=== PATIENT | male | born 1950 | race Caucasian/White ===

== ENCOUNTER → 2016-06-08 | Outpatient (CLI) | payer OTHER, MEDICARE | LOC: FIMAGING 10:49 | PROVIDERS: ATTEND Physician Assistant Surgical | DX: M50.31 Other cervical disc degeneration, high cervical region (principal); Z98.1 Arthrodesis status ==

== ENCOUNTER 2016-12-15 07:10 | Emergency (ER) | payer OTHER, MEDICARE ==
[2016-12-15] MEDS ORDERED: NS 1,000 ML IV ONE (07:38)
[2016-12-15] MEDS ORDERED: HYOSCYAMINE SULFATE 0.125 MG TAB PO ONE (07:38)
[2016-12-15] MEDS ORDERED: MAG HYDROX/AL HYDROX/SIMETH 30 ML UDCUP PO ONE (07:38)
[2016-12-15] MEDS ORDERED: LIDOCAINE 2% VISCOUS 15 ML UDCUP PO ONE (07:38)
--- NOTE | 2016-12-15 07:40 | EDPHY ---
H & P Stated Complaint: Abdo pain for 10 hours. Denies N/V/D. Time Seen by Provider: 12/15/16 07:30 HPI/ROS: CHIEF COMPLAINT: Epigastric pain HISTORY OF PRESENT ILLNESS: Patient is a 65-year-old man who comes to the emergency department complaining of epigastric pain that began around 10 o' clock yesterday evening. He has never had these symptoms before. He describes it as burning sensation and a lot of belching. No history of abdominal surgery. He is not a drinker. No fever. No vomiting or diarrhea. Slight nausea. REVIEW OF SYSTEMS: Constitutional: denies: chills, fever, recent illness, recent injury EENTM: denies: blurred vision, double vision, nose congestion Respiratory: denies: cough, shortness of breath Cardiac: denies: chest pain, irregular heart rate, lightheadedness, palpitations Gastrointestinal/Abdominal: See HPI denies: diarrhea, nausea, vomiting, blood streaked stools Genitourinary: denies: dysuria, frequency, hematuria, pain Musculoskeletal: denies: joint pain, muscle pain Skin: denies: lesions, rash, jaundice, bruising Neurological: denies: headache, numbness, paresthesia, tingling, dizziness, weakness Hematologic/Lymphatic: denies: blood clots, easy bleeding, easy bruising Immunologic/allergic: denies: HIV/AIDS, transplant EXAM: GENERAL: Well-appearing, well-nourished and in no acute distress. HEAD: Atraumatic, normocephalic. EYES: Pupils equal round and reactive to light, extraocular movements intact, sclera anicteric, conjunctiva are normal. ENT: TMs normal, nares patent, oropharynx clear without exudates. Moist mucous membranes. NECK: Normal range of motion, supple without lymphadenopathy or JVD. LUNGS: Breath sounds clear to auscultation bilaterally and equal. No wheezes rales or rhonchi. HEART: Regular rate and rhythm without murmurs, rubs or gallops. ABDOMEN: Soft, nontender, normoactive bowel sounds. No guarding, no rebound. No masses appreciated. BACK: No CVA tenderness, no spinal tenderness, step-offs or deformities EXTREMITIES: Normal range of motion, no pitting or edema. No clubbing or cyanosis. NEUROLOGICAL: Cranial nerves II through XII grossly intact. Normal speech, normal gait. 5/5 strength, normal movement in all extremities, normal sensation PSYCH: Normal mood, normal affect. SKIN: Warm, dry, normal turgor, no visible rashes or lesions. Source: Patient Exam Limitations: No limitations - Personal History Current Tetanus Diphtheria and Acellular Pertussis (TDAP): Yes - Medical/Surgical History Hx Asthma: No Hx Chronic Respiratory Disease: No Hx Diabetes: Yes Hx Cardiac Disease: No Hx Renal Disease: No Hx Cirrhosis: No Hx Alcoholism: No Hx HIV/AIDS: No Hx Splenectomy or Spleen Trauma: No Other PMH: DM 2. - Social History Smoking Status: Never smoked Alcohol Use: Sober Drug Use: None Constitutional: Initial Vital Signs Temperature (C) 36.5 C 12/15/16 07:13 Heart Rate 76 12/15/16 07:13 Respiratory Rate 16 12/15/16 07:13 Blood Pressure 107/65 12/15/16 07:13 O2 Sat (%) 97 12/15/16 07:13 O2 Delivery Mode Room Air Allergies/Adverse Reactions: No Known Allergies Allergy (Verified 01/05/15 15:08) Home Medications: Medication Instructions Recorded Atorvastatin Calcium [Lipitor 10 10 mg PO DAILY 12/29/14 mg (*)] Bupropion HCl [Bupropion HCl Sr] 100 mg PO BID 12/29/14 Insulin Glargine [Lantus 100 12 unit SQ AD 12/29/14 UNITS/ML (*)] Lisinopril [Zestril 2.5 mg (*)] 2.5 mg PO DAILY 12/29/14 metFORMIN HCL [Metformin HCl ER] 1,000 mg PO BID 12/29/14 Famotidine [Pepcid] 40 mg PO HS #30 tablet 12/15/16 Medical Decision Making - Diagnostics EKG Interpretation: An EKG obtained and was read and documented in trace view. Please see trace view for full reading and report. Sinus rhythm, no acute ischemic changes ED Course/Re-evaluation: 9:00 a.m. we discussed the CT and lab results. The lab results are reassuring. The patient's abdominal exam is benign. I recommended admission for what appears to be a small-bowel obstruction but without transition and a CT scan. The patient declines this and states that he does not feel that bad. He does feel better after the GI cocktail. I will start him on an acid. He states that he does have the urge to belch. We discussed things that may happen if he was admitted and precautions that would be taken. He again declines and would prefer to go home. He states that he lives very close and will return if his symptoms worsen in the next 24 hours. He will not eat or drink today and we discussed slow advancement of diet tomorrow. 11:00 A.M. the patient has been here for several hours. His pain has resolved. He continues to refuse admission and is eager to go home. We discussed indications for returning. Differential Diagnosis: Partial list of the Differential diagnosis considered include but were not limited to; peptic ulcer disease, small bowel obstruction and although unlikely based on the history and physical exam, I also considered cancer, ischemia, volvulus. I discussed these differential diagnoses and the plan with the patient as well as the usual and expected course. The patient understands that the diagnosis is provisional and that in medicine we are not always correct and that further workup is often warranted. Usual and customary warnings were given. All of the patient's questions were answered. The patient was instructed to return to the emergency department should the symptoms at all worsen or return, otherwise to followup with the physician as we discussed. - Data Points Laboratory Results: Laboratory Results 12/15/16 07:35 12/15/16 07:35 Medications Given: Discontinued Medications Al Hydroxide/Mg Hydroxide (Maalox Susp) 30 ml PO ONCE ONE Stop: 12/15/16 07:39 Last Admin: 12/15/16 07:49 Dose: 30 ml Hyoscyamine Sulfate (Levsin, Hyomax-Sl) 0.25 mg PO ONCE ONE Stop: 12/15/16 07:39 Last Admin: 12/15/16 07:49 Dose: 0.25 mg Sodium Chloride (Ns) 1,000 mls @ 0 mls/hr IV EDNOW ONE; Wide Open PRN Reason: Protocol Stop: 12/15/16 07:39 Last Admin: 12/15/16 07:50 Dose: 1,000 mls Famotidine/Sodium Chloride (Pepcid 20 Mg (Premix)) 50 mls @ 200 mls/hr IV EDNOW ONE Stop: 12/15/16 09:10 Last Admin: 12/15/16 09:04 Dose: 50 mls Lidocaine (Lidocaine 2% Viscous) 15 ml PO ONCE ONE Stop: 12/15/16 07:39 Last Admin: 12/15/16 07:49 Dose: 15 ml Departure - Departure Disposition: Home, Routine, Self-Care Clinical Impression: Abdominal pain Qualifiers: Abdominal location: generalized Qualified Code(s): R10.84 - Generalized abdominal pain Condition: Fair Instructions: Abdominal Pain (ED) Referrals: Venessa Larios MD [Primary Care Provider] - As per Instructions Prescriptions: Famotidine [Pepcid] 40 mg PO HS #30 tablet
[2016-12-15 07:44] LABS: % IMMATURE GRANULYOCYTES 0.2 % (0.0-1.1); ABSOLUTE IMMATURE GRANULOCYTES 0.01 10^3/uL (0.00-0.10); ADD DIFF? NO; ADD MORPH? NO; ADD SCAN? NO; ATYPICAL LYMPHOCYTE FLAG 0 (0-99); FRAGMENT RBC FLAG 0 (0-99); HEMATOCRIT 44.2 % (40.0-51.0); HEMOGLOBIN 15.5 g/dL (13.7-17.5); LEFT SHIFT FLG 0 (0-99); LIPEMIA HEMOLYSIS FLAG 90 (0-99); MEAN CELL HEMOGLOBIN 30.9 pg (27.9-34.1); MEAN CELL HEMOGLOBIN CONCENTR. 35.1 g/dL (32.4-36.7); MEAN PLATELET VOLUME 9.4 fL (8.7-11.7); PLATELET CLUMPS FLAG 0 (0-99); PLATELET COUNT 213 10^3/uL (150-400); RED BLOOD CELL COUNT 5.02 10^6/uL (4.40-6.38)
[2016-12-15 07:52] LABS: INR 0.99 (0.83-1.16)
[2016-12-15 07:53] LABS: APTT 28.2 SEC (23.0-38.0)
[2016-12-15 07:56] LABS: ALANINE AMINOTRANSFERASE 59 IU/L (21-72); ALBUMIN 4.6 g/dL (3.5-5.0); ALKALINE PHOSPHATASE 53 IU/L (38-126); ANION GAP 12 mEq/L (8-16); ASPARTATE AMINOTRANSFERASE 39 IU/L (17-59); BILIRUBIN,TOTAL 0.5 mg/dL (0.1-1.4); BILIRUBIN-UNCONJUGATED 0.5 mg/dL (0.0-1.1); CARBON DIOXIDE 31 mEq/l (22-31); CHLORIDE 94 mEq/L (97-110); CREATININE 0.8 mg/dL (0.7-1.3); GLOMERULAR FILTRATION RATE > 60; GLUCOSE 108 mg/dL (70-100); POTASSIUM 4.3 mEq/L (3.5-5.2); SODIUM 137 mEq/L (134-144); TOTAL PROTEIN 7.1 g/dL (6.3-8.2)
[2016-12-15] MEDS ORDERED: IOPAMIDOL (ISOVUE-300) 100 ML BTL ONE (08:01)
--- NOTE | 2016-12-15 08:03 | CPEKG ---
Heart Rate: 64 RR Interval: 938 P-R Interval: 184 QRSD Interval: 90 QT Interval: 396 QTC Interval: 409 P [place]: 50 QRS [place]: 81 T Wave [place]: 11 EKG Severity - OTHERWISE NORMAL ECG - EKG Impression: SINUS RHYTHM EKG Impression: BORDERLINE RIGHT AXIS DEVIATION Electronically Signed By: Neo Rizvi 15-Dec-2016 08:18:53
[2016-12-15 08:07] LABS: TROPONIN I < 0.012 ng/mL (0.000-0.034)
[2016-12-15] MEDS ORDERED: FAMOTIDINE 20 MG/NACL 50 ML IV ONE (08:56)
[2016-12-15 09:40] VITALS: O2SAT 95
[2016-12-15 11:26] VITALS: BP 120/59; PULSE 69; RESP 18; TEMP 98.4
== END 2016-12-15 11:26 | disposition home or self-care (01) ==
DX: R10.84 Generalized abdominal pain (principal); E11.9 Type 2 diabetes mellitus without complications; E86.9 Volume depletion, unspecified; Z79.4 Long term (current) use of insulin; Z79.84 Long term (current) use of oral hypoglycemic drugs
CPT/HCPCS: 74177; 93005; 96361; 96365; 99285; Q9967

== ENCOUNTER → 2017-01-02 | Outpatient (CLI) | payer OTHER, MEDICARE | LOC: FIMAGING 13:57 → EDSTATUS 13:58 | PROVIDERS: ATTEND Physician Assistant Surgical | DX: Z98.1 Arthrodesis status (principal); M43.13 Spondylolisthesis, cervicothoracic region; M50.322 Other cervical disc degeneration at C5-C6 level; M50.323 Other cervical disc degeneration at C6-C7 level; M51.34 Other intervertebral disc degeneration, thoracic region ==